=== PATIENT | female | born 1990 | race Caucasian/White ===

== ENCOUNTER 2021-06-20 18:30 | Emergency (ER) | payer BC ==
[~2021-06-20] VITALS: Ht 170.2 cm; Wt 72.6 kg
[2021-06-20] MEDS ORDERED: LIDOCAINE /MPF 1% VIAL 5 ML VIAL ONE (18:42)
--- NOTE | 2021-06-20 18:45 | NUR ---
BIB BROTHER C/O SPLINTER AT RIGHT ELBOW
--- NOTE | 2021-06-20 18:50 | NUR ---
AT BED SIDE TO REMOVE SPLINTER
[2021-06-20] MEDS ORDERED: LIDOCAINE HCL/PF 1% 30 ML VIAL TP ONE (19:00)
[2021-06-20] MEDS ORDERED: ACETAMINOPHEN ES 500 MG TABLET PO ONE (19:00)
[2021-06-20] MEDS ORDERED: TDAP [DIPH/PERTUSSIS/TET] 0.5 ML VIAL IM ONE ×2 (19:00→19:28)
[2021-06-20] MEDS ORDERED: BACI/NEOM/POLY B OINT PKT 1 UDPKT PACKET TP ONE (19:00)
[2021-06-20] MEDS ORDERED: BACI/NEOM/POLY B OINT PKT 1 UDPKT PACKET ONE (19:27)
[2021-06-20] MEDS ORDERED: LIDOCAINE HCL/MPF 1% 30 ML VIAL IJ ONE (19:27)
[2021-06-20] MEDS ORDERED: ACETAMINOPHEN ES 500 MG TABLET ONE (19:28)
--- NOTE | 2021-06-20 19:30 | NUR ---
XRAY AT BEDSIDE
[2021-06-20] MEDS ORDERED: CEPH500C2 PO (19:46)
[2021-06-20] MEDS ORDERED: CEPHALEXIN MONOHYDRATE 500 MG CAPSULE PO ONE ×2 (19:59→20:00)
--- NOTE | 2021-06-20 20:01 | NUR ---
Patient discharged to home in stable condition. Written and verbal after care instructions given. Patient verbalizes understanding of instruction.
[2021-06-20 20:02] VITALS: BP 107/66
== END 2021-06-20 20:02 | disposition home or self-care (01) ==
LOC: ER 18:32
DX: S50.851A Superficial foreign body of right forearm, initial encounter (principal); W45.8XXA Other foreign body or object entering through skin, initial encounter; Y93.89 Activity, other specified; Y92.89 Other specified places as the place of occurrence of the external cause; Y99.8 Other external cause status
CPT/HCPCS: 73070; 90471; 90715; 99284; A6403; A6407; J3490 ×3

== ENCOUNTER 2025-01-21 07:02 | Emergency (ER) | payer BC ==
[~2025-01-21] VITALS: Ht 172.7 cm; Wt 72.6 kg
[~2025-01-21 07:02] MED LIST: CEPH500C2 PO
[2025-01-21] MEDS ORDERED: BACI/NEOM/POLY B OINT PKT 1 UDPKT PACKET ONE (07:23)
[2025-01-21] MEDS ORDERED: TDAP [DIPH/PERTUSSIS/TET] 0.5 ML VIAL IM ONE (07:24)
[2025-01-21] MEDS: TDAP [DIPH/PERTUSSIS/TET] 0.5 ML VIAL IM ONE (07:29)
[2025-01-21] MEDS: BACI/NEOM/POLY B OINT PKT 1 UDPKT PACKET TP ONE (07:29)
[2025-01-21] MEDS ORDERED: LIDOCAINE /MPF 1% VIAL 5 ML VIAL ONE (07:34)
[2025-01-21] MEDS: LIDOCAINE /MPF 1% VIAL 5 ML VIAL IJ ONE (07:37)
[2025-01-21 07:55] VITALS: BP 128/79; TEMP 98.6; O2SAT 99
== END 2025-01-21 07:56 | disposition home or self-care (01) ==
LOC: ER 07:07
DX: S01.01XA Laceration without foreign body of scalp, initial encounter (principal); W22.8XXA Striking against or struck by other objects, initial encounter; Y93.89 Activity, other specified; Y92.89 Other specified places as the place of occurrence of the external cause; Y99.8 Other external cause status
CPT/HCPCS: 99283; 90471; 90715; J3490